=== PATIENT | male | born 1970 ===

== ENCOUNTER → 2017-04-03 | Emergency (ER) | payer OTHER ==
[~2017-04-03] VITALS: Ht 162.6 cm; Wt 81.6 kg
[~2017-04-03] MED LIST: LISINOPRIL10 MG; LOSARTAN POTASS25 MG; SIMVASTATIN20 MG; VERAPAMIL HCL40 MG
== END | disposition home or self-care (01) ==
LOC: ER 19:36
DX: J11.1 Influenza due to unidentified influenza virus with other respiratory manifestations (principal); J06.9 Acute upper respiratory infection, unspecified

== ENCOUNTER 2021-01-07 11:27 | Emergency (ER) | payer OTHER ==
[~2021-01-07] VITALS: Ht 167.6 cm; Wt 86.2 kg
== END 2021-01-07 20:35 | disposition home or self-care (01) ==
LOC: ER 11:27
DX: R10.30 Lower abdominal pain, unspecified (principal)